=== PATIENT | female | born 1935 | race Caucasian/White ===

== ENCOUNTER 2020-08-05 08:56 | Inpatient (IN) ==
[2020-08-05] MEDS ORDERED: Senna TAB 8.6 mg TAB PO PRN (12:16)
[2020-08-05] MEDS ORDERED: Dextrose 50% Syringe 50 ml 25 GM/50 ML SYRINGE IV PUSH PRN (13:09)
[2020-08-05] MEDS: Nitrofurantoin (macrocrystals) 50 mg CAP PO SCH (21:15)
[2020-08-06 05:38] LABS: ABS Basophils 0.1 10^3/ul (0-0.2); ABS Eosinophils 0.1 10^3/ul (0-0.6); ABS Lymphocytes 1.8 10^3/ul (1.0-4.8); ABS Monocytes 0.7 10^3/ul (0-0.8); ABS Neutrophils 4.2 10^3/ul (1.5-7.7); Eosinophil % 1.9 %; Hematocrit 38 % (35-47); Hemoglobin 12.6 g/dL (12.0-16.0); Lymphocyte % 26.3 %; Mean Corpuscular HGB Conc 34 g/dL (31-36); Mean Corpuscular Hemoglobin 30 pg (27-31); Mean Corpuscular Volume 89 fL (80-97); Platelet Count 173 10^3/uL (150-450); Red Cell Distribution Width 15 % (10-15); White Blood Count 6.9 10^3/uL (3.5-10.8)
[2020-08-06 05:54] LABS: Albumin 3.5 g/dL (3.2-5.2); Albumin/Globulin Ratio 1.9 (1-3); BUN/Creatinine Ratio 31.9 (8-20); Calcium 8.7 mg/dL (8.6-10.3); EGFR African American 55.8 (>60); EGFR Non-African American 46.1 (>60); Globulin 1.8 g/dL (2-4); Potassium 4.2 mmol/L (3.5-5.0); Total Bilirubin 1.1 mg/dL (0.2-1.0); Total Protein 5.3 g/dL (6.4-8.9)
[2020-08-06] MEDS: Aspirin EC 81 mg TAB.EC (enteric coated) PO SCH (08:29)
[2020-08-06] MEDS: CMCS: Glimepiride 2 mg TAB (NF) PO SCH (08:31)
[2020-08-06] MEDS: LINAGLIPTIN 5 MG PO SCH (08:33)
[2020-08-06] MEDS: Nitrofurantoin (macrocrystals) 50 mg CAP PO SCH (20:17)
[2020-08-07] MEDS: Aspirin EC 81 mg TAB.EC (enteric coated) PO SCH (08:03)
[2020-08-07] MEDS: CMCS: Glimepiride 2 mg TAB (NF) PO SCH (08:03)
[2020-08-07] MEDS: LINAGLIPTIN 5 MG PO SCH (08:04)
[2020-08-07] MEDS: Nitrofurantoin (macrocrystals) 50 mg CAP PO SCH (21:02)
[2020-08-08] MEDS: CMCS: Glimepiride 2 mg TAB (NF) PO SCH (08:03)
[2020-08-08] MEDS: LINAGLIPTIN 5 MG PO SCH (08:03)
[2020-08-08] MEDS: Aspirin EC 81 mg TAB.EC (enteric coated) PO SCH (08:03)
[2020-08-08] MEDS: Nitrofurantoin (macrocrystals) 50 mg CAP PO SCH (21:09)
[2020-08-09] MEDS: CMCS: Glimepiride 2 mg TAB (NF) PO SCH (08:28)
[2020-08-09] MEDS: Aspirin EC 81 mg TAB.EC (enteric coated) PO SCH (08:28)
[2020-08-09] MEDS: LINAGLIPTIN 5 MG PO SCH (08:29)
[2020-08-09] MEDS: Nitrofurantoin (macrocrystals) 50 mg CAP PO SCH (20:48)
[2020-08-10] MEDS: Aspirin EC 81 mg TAB.EC (enteric coated) PO SCH (08:00)
[2020-08-10] MEDS: CMCS: Glimepiride 2 mg TAB (NF) PO SCH (08:01)
[2020-08-10] MEDS: LINAGLIPTIN 5 MG PO SCH (08:01)
[2020-08-10] MEDS: Nitrofurantoin (macrocrystals) 50 mg CAP PO SCH (20:51)
[2020-08-11] MEDS: Aspirin EC 81 mg TAB.EC (enteric coated) PO SCH (09:11)
[2020-08-11] MEDS: CMCS: Glimepiride 2 mg TAB (NF) PO SCH (09:11)
[2020-08-11] MEDS: LINAGLIPTIN 5 MG PO SCH (09:15)
[2020-08-11] MEDS: Nitrofurantoin (macrocrystals) 50 mg CAP PO SCH (21:15)
[2020-08-12] MEDS: CMCS: Glimepiride 2 mg TAB (NF) PO SCH (08:48)
[2020-08-12] MEDS: LINAGLIPTIN 5 MG PO SCH (08:48)
[2020-08-12] MEDS: Aspirin EC 81 mg TAB.EC (enteric coated) PO SCH (08:48)
[2020-08-12] MEDS: Nitrofurantoin (macrocrystals) 50 mg CAP PO SCH (20:57)
[2020-08-13 07:27] LABS: ABS Eosinophils 0.1 10^3/ul (0-0.6); ABS Lymphocytes 1.4 10^3/ul (1.0-4.8); ABS Monocytes 0.6 10^3/ul (0-0.8); ABS Neutrophils 3.1 10^3/ul (1.5-7.7); Eosinophil % 1.9 %; Hematocrit 37 % (35-47); Hemoglobin 12.4 g/dL (12.0-16.0); Lymphocyte % 27.3 %; Mean Corpuscular HGB Conc 34 g/dL (31-36); Mean Corpuscular Hemoglobin 30 pg (27-31); Mean Corpuscular Volume 89 fL (80-97); Mean Platelet Volume 8.1 fL (7.4-10.4); Platelet Count 174 10^3/uL (150-450); Red Blood Count 4.12 10^6 /uL (3.70-4.87); Red Cell Distribution Width 14 % (10-15); White Blood Count 5.3 10^3/uL (3.5-10.8)
[2020-08-13 07:43] LABS: Albumin 3.4 g/dL (3.2-5.2); Albumin/Globulin Ratio 1.6 (1-3); BUN/Creatinine Ratio 25.8 (8-20); Calcium 8.7 mg/dL (8.6-10.3); EGFR African American 66.5 (>60); Globulin 2.1 g/dL (2-4); Potassium 3.9 mmol/L (3.5-5.0); Total Bilirubin 0.7 mg/dL (0.2-1.0); Total Protein 5.5 g/dL (6.4-8.9)
[2020-08-13] MEDS: Aspirin EC 81 mg TAB.EC (enteric coated) PO SCH (08:28)
[2020-08-13] MEDS: LINAGLIPTIN 5 MG PO SCH (08:29)
[2020-08-13] MEDS: CMCS: Glimepiride 2 mg TAB (NF) PO SCH (08:29)
[2020-08-13] MEDS ORDERED: Phenylephrine 0.5% NASAL BTL LEFT NARE ONE (10:21)
[2020-08-13] MEDS: Nitrofurantoin (macrocrystals) 50 mg CAP PO SCH (21:00)
[2020-08-14 05:28] LABS: ABS Basophils 0.1 10^3/ul (0-0.2); ABS Eosinophils 0.1 10^3/ul (0-0.6); ABS Lymphocytes 1.7 10^3/ul (1.0-4.8); ABS Monocytes 0.6 10^3/ul (0-0.8); ABS Neutrophils 3.2 10^3/ul (1.5-7.7); Eosinophil % 1.9 %; Hematocrit 37 % (35-47); Hemoglobin 12.4 g/dL (12.0-16.0); Lymphocyte % 30.4 %; Mean Corpuscular HGB Conc 34 g/dL (31-36); Mean Corpuscular Hemoglobin 30 pg (27-31); Mean Corpuscular Volume 89 fL (80-97); Platelet Count 181 10^3/uL (150-450); Red Blood Count 4.17 10^6 /uL (3.70-4.87); Red Cell Distribution Width 14 % (10-15); White Blood Count 5.7 10^3/uL (3.5-10.8)
[2020-08-14] MEDS: CMCS: Glimepiride 2 mg TAB (NF) PO SCH (08:47)
[2020-08-14] MEDS: Aspirin EC 81 mg TAB.EC (enteric coated) PO SCH (08:47)
[2020-08-14] MEDS: LINAGLIPTIN 5 MG PO SCH (08:48)
[2020-08-14] MEDS: Nitrofurantoin (macrocrystals) 50 mg CAP PO SCH (21:18)
[2020-08-15 06:02] VITALS: BP 121/49
[2020-08-15] MEDS: LINAGLIPTIN 5 MG PO SCH (10:06)
[2020-08-15] MEDS: CMCS: Glimepiride 2 mg TAB (NF) PO SCH (10:07)
[2020-08-15] MEDS: Aspirin EC 81 mg TAB.EC (enteric coated) PO SCH (10:07)
== END 2020-08-15 16:20 | disposition home health service (06) | DRG 57 ==
LOC: PMRU 11:23
PROVIDERS: ADMIT Physical Medicine & Rehabilitation; ATTEND Physical Medicine & Rehabilitation